=== PATIENT | female | born 1950 | race Caucasian/White ===

== ENCOUNTER 2019-06-08 07:15 | Day surgery (SDC) | payer MEDICARE, BC ==
[~2019-06-08] VITALS: Ht 167.6 cm; Wt 94.8 kg
[~2019-06-08 07:15] MED LIST: ACET-2615 PO; BUPR300T53 PO; CELE-193 PO; CITA20TA19 PO; CLON-527 PO; CYAN50LO INJ; ESTR1PAT TD; LEVO1CAP PO; LIQUID MINERALS PO; LISD60CA PO; PROG100C11 PO; SCOP TP; TELM80TA2 PO; WALKERFR
[2019-06-08 07:30] VITALS: BP 116/77
[2019-06-08] MEDS ORDERED: normal saline 1000ml 1,000 ML IV PRN (07:35)
[2019-06-08] MEDS ORDERED: LEVO50TA PO (07:50)
[2019-06-08] MEDS ORDERED: FAMO20TA8 PO (07:50)
[2019-06-08] MEDS ORDERED: FLUT50BL NS (07:50)
[2019-06-08] MEDS ORDERED: ESCI10TA54 PO (07:50)
[2019-06-08] MEDS ORDERED: AMLO5TAB PO (07:50)
[2019-06-08] MEDS ORDERED: PAT0.1OS OP (07:50)
[2019-06-08 07:59] LABS: ALBUMIN 3.6 G/DL (3.4-5.0); ANION GAP 11 (8-16); BLOOD UREA NITROGEN 13 MG/DL (7-18); BUN/CREATININE RATIO 19.7 (6.6-38.0); CALCIUM 9.5 MG/DL (8.5-10.1); CHLORIDE 103 MMOL/L (99-107); CREATININE 0.66 MG/DL (0.40-0.90); GLUCOSE 112 MG/DL (70-104); POTASSIUM 3.8 MMOL/L (3.5-5.1); SODIUM 138 MMOL/L (135-145); TOTAL CARBON DIOXIDE 23.6 MMOL/L (24-32); eGFR 88 ML/MIN
[2019-06-08 08:03] LABS: BASOPHILS # (AUTO) 0.1 X10'3 (0-0.2); BASOPHILS % (AUTO) 0.6 % (0-1); EOSINOPHILS # (AUTO) 0.5 X10'3 (0-0.9); EOSINOPHILS % (AUTO) 4.8 % (0-6); HEMATOCRIT 40.7 % (35.0-45.0); HEMOGLOBIN 13.4 g/dl (12.0-16.0); LYMPHOCYTES # (AUTO) 1.8 X10'3 (1.1-4.8); LYMPHOCYTES % (AUTO) 18.5 % (21-51); MEAN CORPUSCULAR HEMOGLOBIN 28.3 PG (27.0-31.0); MEAN CORPUSCULAR HGB CONC 32.8 g/dL (33.0-36.5); MEAN CORPUSCULAR VOLUME 86.2 FL (78-98); MEAN PLATELET VOLUME 7.8 FL (7.4-10.4); MONOCYTES # (AUTO) 0.6 X10'3 (0-0.9); MONOCYTES % (AUTO) 6.1 % (2-12); NEUTROPHILS # (AUTO) 6.7 X10'3 (1.8-7.7); PLATELET COUNT 338 X10'3 (140-440); RED BLOOD COUNT 4.72 X10'6 (4.20-5.60); RED CELL DISTRIBUTION WIDTH 15.2 % (11.5-14.5); WHITE BLOOD COUNT 9.5 X10'3 (4.5-11.0)
[2019-06-08] MEDS ORDERED: heparin sodium, porcine/PF 100unit/ml 5ML syringe ONE (08:14)
[2019-06-08] MEDS ORDERED: midazolam 2 mg/2 ml injection ONE (08:14)
[2019-06-08] MEDS ORDERED: heparin sodium, porcine/PF 100unit/ml 5ML syringe ICATH ONE (08:15)
[2019-06-08] MEDS ORDERED: midazolam 2 mg/2 ml injection IV PRN (08:15)
[2019-06-08] MEDS ORDERED: fentaNYL/PF 50MCG/1 ML 2ML syringe ONE (08:15)
[2019-06-08] MEDS ORDERED: LIDOcaine 1%/PF 5ML 10 MG/ML VIAL ONE (08:15)
[2019-06-08] MEDS ORDERED: LIDOcaine 1%/PF 5ML 10 MG/ML VIAL SQ ONE (08:15)
[2019-06-08] MEDS ORDERED: fentaNYL/PF 50MCG/1 ML 2ML syringe IV PRN (08:15)
[2019-06-08 09:30] VITALS: BP 126/73
[2019-06-08 09:45] VITALS: BP 127/92
[2019-06-08 10:00] VITALS: BP 145/96
[2019-06-08 10:15] VITALS: BP 148/76
== END 2019-06-08 10:15 | disposition home or self-care (01) ==
LOC: SSTAY O 07:15
PROVIDERS: ATTEND Radiology Diagnostic Radiology
DX: C50.911 Malignant neoplasm of unspecified site of right female breast (principal); I10 Essential (primary) hypertension; E03.9 Hypothyroidism, unspecified; F32.9 Major depressive disorder, single episode, unspecified; M19.90 Unspecified osteoarthritis, unspecified site; F98.8 Other specified behavioral and emotional disorders with onset usually occurring in childhood and adolescence; Z88.2 Allergy status to sulfonamides; Z79.899 Other long term (current) drug therapy; Z98.890 Other specified postprocedural states
CPT/HCPCS: 36415; 36561; 76937; 77001; 80048; 85025; 85610; 99152; 99153; C1788; C1894; J1642; J2250; J3010; J7030; A6213

== ENCOUNTER 2021-08-02 10:30 | Outpatient (CLI) | payer MEDICARE, BC ==
[~2021-08-02] VITALS: Ht 167.6 cm; Wt 90.7 kg
[~2021-08-02 10:30] MED LIST changes: +AMLO5TAB PO; -CYAN50LO INJ; +ESCI-8 PO; +FAMO20TA8 PO; +FLUT50BL NS; +LEVO50TA PO; +PAT0.1OS OP
[2021-08-02] MEDS ORDERED: LANS15CA18 PO (11:47)
[2021-08-02 12:13] LABS: BASOPHILS % (AUTO) 0.5 % (0-1); EOSINOPHILS # (AUTO) 0.2 X10'3 (0-0.9); EOSINOPHILS % (AUTO) 2.6 % (0-6); LYMPHOCYTES # (AUTO) 1.3 X10'3 (1.1-4.8); LYMPHOCYTES % (AUTO) 19.4 % (21-51); MEAN CORPUSCULAR HEMOGLOBIN 30.4 PG (27.0-31.0); MEAN CORPUSCULAR HGB CONC 33.5 g/dL (33.0-36.5); MEAN CORPUSCULAR VOLUME 90.6 FL (78-98); MONOCYTES # (AUTO) 0.4 X10'3 (0-0.9); MONOCYTES % (AUTO) 6.3 % (2-12); NEUTROPHILS # (AUTO) 4.7 X10'3 (1.8-7.7); NEUTROPHILS % (AUTO) 71.2 % (42-75); PRE OP HEMATOCRIT 43.3 % (35.0-45.0); PRE OP HEMOGLOBIN 14.5 g/dL (12.0-16.0); PRE OP PLATELET COUNT 230 X10'3 (140-440); RED BLOOD COUNT 4.77 X10'6 (4.20-5.60); RED CELL DISTRIBUTION WIDTH 14.5 % (11.5-14.5)
[2021-08-02 13:05] LABS: ALBUMIN 3.8 G/DL (3.4-5.0); ALBUMIN/GLOBULIN RATIO 1.1 (1.1-1.5); ALKALINE PHOSPHATASE 80 IU/L (46-116); BLOOD UREA NITROGEN 28 MG/DL (7-18); CHLORIDE 104 MMOL/L (99-107); PRE OP ALT 24 U/L (30-65); PRE OP ANION GAP 13 (8-16); PRE OP AST 12 U/L (10-37); PRE OP BILIRUB, TOTAL 0.4 MG/DL (0.0-1.0); PRE OP GLUCOSE 108 MG/DL (70-104); PRE OP POTASSIUM 3.9 MMOL/L (3.4-5.1); PRE OP SODIUM 141 MMOL/L (135-145); TOTAL CARBON DIOXIDE 24.3 MMOL/L (24-32); TOTAL PROTEIN 7.3 G/DL (6.4-8.2); eGFR 70 ML/MIN
[2021-08-04] MEDS ORDERED: LETR2.5T7 PO (11:23)
[2021-08-04] MEDS ORDERED: CELE-85 PO (11:23)
[2021-08-04] MEDS ORDERED: CLON0.5T4 PO (11:25)
[2021-08-04] MEDS ORDERED: FLUT16SP11 BOTHNARES (11:27)
[2021-08-04] MEDS ORDERED: OMEP-50 PO (11:34)
[2021-08-07] MEDS ORDERED: ringers solution, lacted 1,000 ML IV SCH (05:00)
[2021-08-07] MEDS ORDERED: cefazolin/dext.iso 2gm/100ml IV ONE (05:30)
[2021-08-07] MEDS ORDERED: scopolamine 1mg/72 hr patch TD SCH (05:30)
[2021-08-07] MEDS ORDERED: famotidine 20mg tablet PO ONE (05:30)
[2021-08-07] MEDS ORDERED: vancomycin 1,500 MG in NS 300ml IV soln IV ONE (05:30)
[2021-08-07] MEDS ORDERED: tranexamic acid 650mg tablet PO ONE (05:30)
== END 2021-08-02 23:59 | disposition home or self-care (01) ==
LOC: PRE-OP 10:30 → EDSTATUS 08-07 11:15
PROVIDERS: ATTEND Orthopaedic Surgery
DX: Z01.812 Encounter for preprocedural laboratory examination (principal); M75.122 Complete rotator cuff tear or rupture of left shoulder, not specified as traumatic; M19.012 Primary osteoarthritis, left shoulder; Z20.822 Contact with and (suspected) exposure to COVID-19
CPT/HCPCS: 36415; 80053; 84443; 85025; 87081; 93005; U0003; U0005; J3370; J7040; J7120

== ENCOUNTER 2023-07-31 07:02 | Day surgery (SDC) | payer MEDICARE, BC ==
[2023-07-31] VITALS (17 sets, daily range): BP systolic 103–145; BP diastolic 52–80; PULSE 66–81; RESP 14–18; TEMP 98.1; O2SAT 91–100
[~2023-07-31] VITALS: Ht 167.6 cm; Wt 98.7 kg
[~2023-07-31 07:02] MED LIST changes: +CELE-127 PO; -CELE-193 PO; -CITA20TA19 PO; -CLON-527 PO; +CLON0.5T4 PO; -ESTR1PAT TD; -FAMO20TA8 PO; +FLUT16SP11 BOTHNARES; -FLUT50BL NS; -LEVO1CAP PO; -LIQUID MINERALS PO; +OMEP20CA16 PO; -PROG100C11 PO; -SCOP TP; -WALKERFR
[2023-07-31] MEDS ORDERED: albumin 25% 100mL bottle x 1 IV PRN (07:45)
[2023-07-31] MEDS ORDERED: LANS15CA18 PO (07:47)
[2023-07-31] MEDS ORDERED: ESCI20TA39 PO (07:47)
[2023-07-31 08:12] LABS: BASOPHILS % (AUTO) 0.6 % (0-1); EOSINOPHILS # (AUTO) 0.2 X10'3 (0-0.9); HEMATOCRIT 41.5 % (35.0-45.0); HEMOGLOBIN 13.7 g/dl (12.0-16.0); LYMPHOCYTES # (AUTO) 1.1 X10'3 (1.1-4.8); LYMPHOCYTES % (AUTO) 17.6 % (21-51); MEAN CORPUSCULAR HEMOGLOBIN 30.2 PG (27.0-31.0); MEAN CORPUSCULAR HGB CONC 33.1 g/dL (33.0-36.5); MEAN CORPUSCULAR VOLUME 91.2 FL (78-98); MEAN PLATELET VOLUME 8.4 FL (7.4-10.4); MONOCYTES # (AUTO) 0.5 X10'3 (0-0.9); MONOCYTES % (AUTO) 8.2 % (2-12); NEUTROPHILS # (AUTO) 4.3 X10'3 (1.8-7.7); NEUTROPHILS % (AUTO) 70.6 % (42-75); PLATELET COUNT 219 X10'3 (140-440); RED BLOOD COUNT 4.55 X10'6 (4.20-5.60); RED CELL DISTRIBUTION WIDTH 14.5 % (11.5-14.5); WHITE BLOOD COUNT 6.1 X10'3 (4.5-11.0)
[2023-07-31 08:21] LABS: PROTHROMBIN TIME 10.4 SECONDS (9.0-12.0)
[2023-07-31] MEDS ORDERED: LIDOcaine 1% 30ml preserv. free vial ONE (09:09)
[2023-07-31] MEDS ORDERED: midazolam 1 mg/ML 2ml injection ONE ×2 (09:20→10:45)
[2023-07-31] MEDS ORDERED: fentaNYL/PF 50MCG/1 ML 2ML syringe ONE ×2 (09:20→10:45)
[2023-07-31] MEDS ORDERED: normal saline 1000ml 1,000 ML IV SCH (09:35)
[2023-07-31] MEDS ORDERED: heparin sodium, porcine/PF 100unit/ml 5ML syringe ONE (10:54)
== END 2023-07-31 13:50 | disposition home or self-care (01) ==
LOC: SSTAY O 07:02
PROVIDERS: ATTEND Radiology Diagnostic Radiology
DX: C50.311 Malignant neoplasm of lower-inner quadrant of right female breast (principal); C7B.8 Other secondary neuroendocrine tumors; I10 Essential (primary) hypertension; E30.9 Disorder of puberty, unspecified; M19.90 Unspecified osteoarthritis, unspecified site; Z88.2 Allergy status to sulfonamides; Z79.899 Other long term (current) drug therapy
CPT/HCPCS: 20225; 36415; 36561; 76937; 77001; 77012; 85025; 85610; 99152; 99153; C1769; C1788; J1642; J2250; J3010; J3490; J7030; A4615; A4620; C1894